=== PATIENT | female | born 1975 | race Caucasian/White ===

== ENCOUNTER 2018-10-18 08:33 | Outpatient (CLI) | payer MEDICAID | END 2018-10-18 08:34 | disposition home or self-care (01) | LOC: CARDIO 08:33 ==

== ENCOUNTER 2018-11-09 06:38 | Day surgery (SDC) | payer MEDICAID ==
[2018-10-27 11:52] VITALS: BMI 26.9
--- NOTE | 2018-11-08 22:09 | HP ---
DATE OF EXAM: 11/08/2018 REASON FOR ADMISSION: Left heart cath, possible angioplasty. BRIEF CLINICAL HISTORY: This is a 43-year-old female with past medical history significant for obesity, hypothyroidism, complaining of chest pain off and on, dyspnea on exertion. Chest pain going to the left breast and axilla and shoulder. The patient underwent noninvasive workup with stress test and an echo. The stress test is abnormal so the patient scheduled for elective cardiac cath, possible angioplasty. PAST MEDICAL HISTORY: Significant for obesity, hypothyroidism. SOCIAL HISTORY: Denies any smoking. Denies any history of alcohol abuse. FAMILY HISTORY: Noncontributory. No history of significant coronary artery disease. CURRENT MEDICATIONS: The patient is taking levothyroxine 125 mcg daily. REVIEW OF SYSTEMS: As per HPI. PHYSICAL EXAMINATION GENERAL: Height of the patient 5 feet 7 inches, weight of the patient 172 pounds, body mass index 27 kg/m2. VITAL SIGNS: Temperature afebrile, heart rate 67, blood pressure 102/60. HEENT: PERRLA. Extraocular muscles intact. NECK: Supple. No carotid bruits or thyromegaly. CHEST: Clear to auscultation. HEART: S1 and S2, regular. ABDOMEN: Soft. EXTREMITIES: Clubbing, cyanosis negative. RECENT CARDIAC WORKUP FOLLOWS: The patient had stress test dated 10/18/2018, that shows equivocal SPECT test perfusion scan, partially reversible anteroseptal defect suspicious for ischemia, ejection fraction 62%. The patient has echocardiography 10/18/2018, that showed normal chamber size, ejection fraction 55%, [id number] mitral regurgitation, mitral jet is eccentrically posteriorly directed, borderline mitral valve prolapse, anterior leaflet in late systole, trace tricuspid regurgitation, RV systolic pressure 22. IMPRESSION: A 43-year-old obese female with past medical history significant for hypothyroidism, complaining of chest pain off and on. The patient underwent a stress test that was abnormal, so the patient is scheduled for elective cardiac catheterization and possible angioplasty. The patient has also baseline some mitral regurgitation with mild mitral valve prolapse posteriorly dilated jet. Risks, benefits, and alternatives were explained to the patient. The patient is agreeable to proceed for cardiac catheterization. Further recommendation after cardiac catheterization. We will follow with you. This is a history and physical, the patient is scheduled for a cardiac catheterization tomorrow morning. Thank you Dr. Bowen Benito for providing us the opportunity in taking care of the patient, Nolvia Lassitereena. Jackie Vega MD
[2018-11-09 07:10] LABS: BASO # 0.01 K/mm3 (0.0-2.0); BASO % 0.2 % (0.0-3.0); EOS # 0.1 (0.0-0.7); EOS % 2.9 % (1.5-5.0); HEMOGLOBIN 12.3 g/dL (12.0-16.0); LYMPH # 2.1 (1.2-3.4); MEAN CELL VOLUME 77.2 fl (80.0-105.0); MEAN CORPUSCULAR HEMOGLOBIN 24.6 pg (25.0-35.0); MEAN CORPUSCULAR HGB CONC 31.8 g/dl (31.0-37.0); MEAN PLATELET VOLUME 10.1 fl (7.0-11.0); MONO # 0.2 (0.1-0.6); MONO % 4.2 % (1.0-6.0); RBC 5.01 10^6/uL (3.5-6.1); RED CELL DISTRIBUTION WIDTH 13.9 % (11.5-14.5); WHITE BLOOD COUNT 4.8 10^3/uL (4.5-11.0)
[2018-11-09 07:20] LABS: BLOOD UREA NITROGEN 18 mg/dL (7-21); CALCIUM 9.2 mg/dL (8.4-10.5); GFR NON-AFRICAN AMERICAN > 60; HDL CHOLESTEROL 46 mg/dL (29-60); INR 1.05; PARTIAL THROMBOPLASTIN TIME 32.6 Seconds (26.9-38.3); PROTHROMBIN TIME 11.9 SECONDS (9.4-12.5)
[2018-11-09 07:30] LABS: LDL CHOLESTEROL 99 mg/dL (0-129)
[2018-11-09] MEDS ORDERED: Lidocaine PF 2% (5 ml) Inj (For Cardiac Arrhy) ONE (08:39)
[2018-11-09] MEDS ORDERED: Verapamil 2 ML ONE (08:40)
[2018-11-09] MEDS ORDERED: Iohexol 350mgl/ml 50 ML ONE (08:40)
[2018-11-09] MEDS ORDERED: Nitroglycerin 50mg in D5W 50 MG/250 ML BOTTLE IV ONE (08:41)
[2018-11-09] MEDS ORDERED: Midazolam 2 MG/2 ML VIAL ONE (09:12)
[2018-11-09] MEDS ORDERED: Bacitracin 500 Units/gm Oint Foilpak UD TOP ONE (09:48)
[2018-11-09] MEDS ORDERED: Sodium Chloride 0.9% 1,000 ML IV SCH (10:00)
[2018-11-09] MEDS ORDERED: Levothyroxine 125 MCG TAB PO SCH (10:00)
[2018-11-09 10:04] VITALS: TEMP 98.2
[2018-11-09 10:22] VITALS: RESP 16
--- NOTE | 2018-11-09 10:35 | CPOSTOP ---
DATE: 11/09/2018 DICTATING PHYSICIAN: Jackie Vega MD. CHIEF METEOROLOGIST: ELLIOTT Melton. TYPE OF ANESTHESIA: Moderate conscious sedation, total 2 mg of Versed, 100 of fentanyl, given periodically; started 1 mg of Versed, 50 of fentanyl. PRE-PROCEDURE DIAGNOSES: Unstable angina, recurrent chest pain, abnormal stress, anterior wall ischemia. PROCEDURE PERFORMED: Left heart catheterization. FINDINGS: Normal coronaries. FINAL DIAGNOSIS: Normal coronaries. POST PROCEDURE: The patient's condition is stable. VASCULAR ACCESS SITE: Left radial artery. CLOSURE DEVICE: TR Band. TOTAL RADIATION DOSE: 3100.3 milligray unit. TOTAL FLUORO TIME: 2.7 minutes. Jackie Vega MD
--- NOTE | 2018-11-09 11:13 | CARD ---
APPROVED REPORT Date of service: 11/09/2018 EKG Measurement Heart [id number] <Conclusion> Normal sinus rhythm Normal ECG
[2018-11-09 11:28] VITALS: O2SAT 98
[2018-11-09] MEDS ORDERED: Bacitracin 500 Units/gm Oint Foilpak UD ONE (12:48)
[2018-11-09 13:01] VITALS: BP 98/67; PULSE 65
--- NOTE | 2018-11-09 18:52 | CARD ---
APPROVED REPORT Date of service: 11/09/2018 Procedure(s) performed: Left Heart Catheterization HISTORY The patient is a 43 year-old female with a history of : most recent EF: 62%. (EF Method: RADIONUCLIDE), C/o recurrent, Multiple office Vists for Chest pain and abnormal stress test, loli-septal Ischemia. INDICATION The indication(s) include : positive stress test, chest pain, dyspnea. CASE TECHNIQUE The patient was brought electively to the Cardiac Catheterization Laboratory in a fasting state and was prepped and draped in a sterile manner. The left wrist was infiltrated with 2% Lidocaine subcutaneous anesthesia. A 6FR GLIDESHEATH ACCESS KIT sheath was inserted into the left radial artery without difficulty. Coronary angiography was performed using coronary diagnostic catheters. The left coronary system was accessed and visualized with a Diagnostic,5 Fr JL 4 catheter. The right coronary system was accessed and visualized with a Diagnostic ,5 Fr JL 4 catheter. The left ventricle was accessed and visualized with a 5 Fr Pigtail 145 (Angled) catheter. Left ventricular/Aortic Valve gradient assessed on pullback. Left ventriculogram was performed in EDWARD projection. Closure device was deployed with a Fr TR Band (Regular) without any complications. The patient tolerated the procedure well and there were no complications associated with the procedure. Vessel Analysis The patient's coronary anatomy is right dominant. The left main coronary artery is a medium size vessel without significant stenosis. The left main bifurcates to the left anterior descending and circumflex. The left anterior descending artery is a medium size vessel without significant stenosis. The first diagonal branch is a large size vessel without significant stenosis. The circumflex artery is a medium size vessel without significant stenosis. The first obtuse marginal branch is a medium size vessel without significant stenosis. The right coronary artery is a large size vessel without significant stenosis. The right posterior descending artery is a large size vessel without significant stenosis. The right posterolateral branch is a medium size vessel without significant stenosis. Left Ventricle The left ventricle is normal in size with normal contractility. There was no cardiomyopathy. The left ventricular ejection fraction is estimated to be 65%. The left ventricular end diastolic pressure is 18 mmHg. There was no gradient across the aortic valve upon pullback. Conclusion Normal Epicardial Coronaries. Preserved LV FX. EF-65%, EDP-18 mmof Hg. Recommendations Aggressive Medical TherapyCardiac Risk Reduction Program W/u for non cardiac chest pain. CC; Dr. Bowen Benito MD.
== END 2018-11-09 14:00 | disposition home or self-care (01) ==
LOC: CATH 06:38
PROVIDERS: ATTEND Internal Medicine Cardiovascular Disease
DX: I20.0 Unstable angina (principal); E03.9 Hypothyroidism, unspecified; I34.0 Nonrheumatic mitral (valve) insufficiency; E66.9 Obesity, unspecified
CPT/HCPCS: 36415; 80048; 80061; 84703; 85025; 85610; 85730; 86850; 86900; 93005; 93458; 99152; C1769; C1887 ×2; J1644 ×2; J2250; J3010; J7030; J7040; Q9967